=== PATIENT | male | born 1975 | race Caucasian/White ===

== ENCOUNTER 2021-10-23 09:18 | Outpatient (CLI) | payer BC, SELFPAY ==
--- NOTE | 2021-10-23 11:00 | NEURO_ITS ---
Impression: # Complains of numbness of 4th and 5th fingers. # Normal nerve conduction study with no Carpal Tunnel Syndrome or ulnar neuropathy. # Normal needle/EMG exam. # Clinical correlation recommended. Nerve Conduction Studies Anti Sensory Summary Table Stim Site NR Peak (ms) P-T Amp (?V) Site1 Site2 Delta-P (ms) Dist (cm) Himanshu (m/s) Left Median Anti Sensory (2-3nd Digit) Wrist 2.8 85.1 Wrist 2-3nd Digit 2.8 14.0 50 Wrist 2.8 79.2 Wrist 2-3nd Digit 2.8 14.0 50 Right Median Anti Sensory (2-3nd Digit) Wrist 2.7 75.6 Wrist 2-3nd Digit 2.7 14.0 52 Wrist 2.8 69.4 Wrist 2-3nd Digit 2.7 14.0 52 Left Radial Anti Sensory (Base 1st Digit) Wrist 2.2 23.5 Wrist Base 1st Digit 2.2 0.0 Right Radial Anti Sensory (Base 1st Digit) Wrist 2.3 21.2 Wrist Base 1st Digit 2.3 0.0 Left Ulnar Anti Sensory (5th Digit) Wrist 2.7 64.4 Wrist 5th Digit 2.7 14.0 52 Right Ulnar Anti Sensory (5th Digit) Wrist 2.4 58.0 Wrist 5th Digit 2.4 14.0 58 Motor Summary Table Stim Site NR Onset (ms) O-P Amp (mV) Site1 Site2 Delta-0 (ms) Dist (cm) Himanshu (m/s) Left Median Motor (Abd Poll Brev) Wrist 3.1 3.1 Elbow Wrist 5.1 29.0 57 Elbow 8.2 4.7 Right Median Motor (Abd Poll Brev) Wrist 3.1 3.0 Elbow Wrist 4.9 28.0 57 Elbow 8.0 3.0 Left Ulnar Motor (Abd Dig Minimi) Wrist 2.3 6.3 A Elbow Wrist 4.9 28.0 57 A Elbow 7.2 5.8 Right Ulnar Motor (Abd Dig Minimi) Wrist 2.4 6.3 A Elbow Wrist 5.1 29.0 57 A Elbow 7.5 5.8 F Wave Studies NR F-Lat (ms) L-R F-Lat (ms) Left Median (Mrkrs) (Abd Poll Brev) 28.01 0.41 Right Median (Mrkrs) (Abd Poll Brev) 27.60 0.41 Left Ulnar (Mrkrs) (Abd Dig Min) 27.81 0.02 Right Ulnar (Mrkrs) (Abd Dig Min) 27.84 0.02 EMG Side Muscle Nerve Root Ins Act Fibs Amp Dur Recrt Comment Right 1stDorInt Ulnar C8-T1 Nml Nml Nml Nml Nml Right Ext Indicis Radial (Post Int) C7-8 Nml Nml Nml Nml Nml Right Ext Digitorum Radial (Post Int) C7-8 Nml Nml Nml Nml Nml Right BrachioRad Radial C5-6 Nml Nml Nml Nml Nml Right PronatorTeres Median C6-7 Nml Nml Nml Nml Nml Right Abd Poll Brev Median C8-T1 Nml Nml Nml Nml Nml Left 1stDorInt Ulnar C8-T1 Nml Nml Nml Nml Nml Left Ext Indicis Radial (Post Int) C7-8 Nml Nml Nml Nml Nml Left Ext Digitorum Radial (Post Int) C7-8 Nml Nml Nml Nml Nml Left BrachioRad Radial C5-6 Nml Nml Nml Nml Nml Left PronatorTeres Median C6-7 Nml Nml Nml Nml Nml Left Abd Poll Brev Median C8-T1 Nml Nml Nml Nml Nml Right ABD Dig Min Ulnar C8-T1 Nml Nml Nml Nml Nml Right Abd Poll Long Radial (Post Int) C7-8 Nml Nml Nml Nml Nml Left ABD Dig Min Ulnar C8-T1 Nml Nml Nml Nml Nml Left Abd Poll Long Radial (Post Int) C7-8 Nml Nml Nml Nml Nml MTDD
== END 2021-10-23 09:19 | disposition home or self-care (01) ==
LOC: ANHNEURO 09:21
PROVIDERS: PCP Family Medicine; Visit Provider Family Medicine
DX: R20.0 Anesthesia of skin (principal); R20.2 Paresthesia of skin
CPT/HCPCS: 95886; 95911

== ENCOUNTER 2023-02-06 08:59 | Emergency (ER) | payer BC, SELFPAY ==
--- NOTE | ~2023-02-06 | CT_ITS ---
EXAMINATION: CT cervical spine wo con DATE: 02/06/2023 09:53 INDICATION: Head injury TECHNIQUE: Computed tomography (CT) of the cervical spine was performed without intravenous contrast. The dose-length product (DLP) was 372.68 mGy-cm. Automated exposure control and iterative reconstruc tion technique were employed. COMPARISON: None FINDINGS: On alignment is normal. There is no fracture. The odontoid process is intact. The vertebral body heights are maintained. Small degenerative osteophytes project from the anterior endplates of m ultiple vertebral bodies. There is multilevel mild facet and uncovertebral joint osteoarthritis. Ther e is a moderate amount of venous gas seen in the subclavian veins and scattered throughout smaller ve ins in the neck and at a few levels of the cervical spine, possibly related to IV insertion. IMPRESSION: 1. Mild cervical spondylosis without acute osseous abnormality. Reviewed, dictated and finalized at location A.
--- NOTE | ~2023-02-06 | XR_ITS ---
EXAMINATION: XR chest 1V INDICATION: Chest pain TECHNIQUE: Frontal view of the chest is obtained. COMPARISON: None available FINDINGS: The lungs are free of acute opacities. No pleural effusion or pneumothorax. The cardiomedia stinal silhouette is normal. IMPRESSION: 1. No acute cardiopulmonary abnormality. Reviewed, dictated and finalized at location A.
--- NOTE | ~2023-02-06 | XR_ITS ---
EXAMINATION: XR hip LT 2V w AP pelvis INDICATION: Left hip pain TECHNIQUE: AP view of the pelvis and two views of the left hip are obtained. COMPARISON: None available FINDINGS: Bone alignment is normal. There is no fracture. There is mild osteoarthritis of the hips. IMPRESSION: 1. No acute osseous abnormality. Reviewed, dictated and finalized at location A.
--- NOTE | ~2023-02-06 | CT_ITS ---
EXAMINATION: CT brain wo con INDICATION: Head injury COMPARISON: None TECHNIQUE: Standard unenhanced head CT. The dose-length product (DLP) was 605.33 mGy-cm. The mA was a djusted according to patient size. Iterative reconstruction technique was employed. FINDINGS: There is no intracranial hemorrhage, acute infarction, or abnormal mass lesion. The ventric les are normal. There is no abnormal mass effect or midline shift. The murillo-white matter differentiat ion is normal. The basal cisterns are patent. The orbits are normal. The paranasal sinuses, mastoids and calvarium are normal. IMPRESSION: 1. No acute intracranial abnormality. Reviewed, dictated and finalized at location A.
--- NOTE | ~2023-02-06 | XR_ITS ---
EXAMINATION: XR knee LT min 4V DATE: 02/06/2023 10:30 INDICATION: Left knee pain TECHNIQUE: Four views of the left knee were obtained. COMPARISON: None. FINDINGS: Alignment is normal. No fracture or osteochondral lesion. Joint spaces are normal with no e rosions. No joint effusion/synovitis. Soft tissues are unremarkable. IMPRESSION: 1. No acute osseous abnormality. Reviewed, dictated and finalized at location A.
--- NOTE | ~2023-02-06 | XR_ITS ---
EXAMINATION: XR elbow LT min 3V DATE: 02/06/2023 10:29 INDICATION: Left elbow pain, initial encounter TECHNIQUE: Anteroposterior, oblique, and lateral views of the left elbow were obtained. COMPARISON: None. FINDINGS: There is a comminuted fracture of the olecranon. The largest fracture fragment is proximall y migrated and overriding the posterior aspect of the distal humeral shaft. There is posterior soft t issue swelling of the elbow. No additional fracture is identified. IMPRESSION: 1. Comminuted fracture of the olecranon with proximal migration of the largest fracture fragment. Reviewed, dictated and finalized at location A.
--- NOTE | ~2023-02-06 | XR_ITS ---
EXAMINATION: XR hand RT min 3V INDICATION: Right hand pain, initial encounter TECHNIQUE: Three views of the right hand are obtained. COMPARISON: None available FINDINGS: There is an acute, traumatic, comminuted neck fracture of the fifth metacarpal. The distal fracture fragment demonstrates approximately 3 mm of lateral displacement. No additional fracture is identified. The joint spaces are normal. Soft tissue swelling is seen near the fracture. IMPRESSION: 1. Comminuted, minimally displaced fifth metacarpal neck fracture. Reviewed, dictated and finalized at location A.
--- NOTE | ~2023-02-06 | XR_ITS ---
EXAMINATION: XR shoulder LT min 2V INDICATION: Left shoulder pain TECHNIQUE: Four views of the left shoulder are submitted. COMPARISON: None FINDINGS: Normal alignment. No fracture. Glenohumeral and acromioclavicular joint spaces are normal. Soft tissues are unremarkable. IMPRESSION: 1. No acute osseous abnormality. Reviewed, dictated and finalized at location A.
[2023-02-06 09:10] VITALS: BP 136/89; PULSE 67; RESP 16; TEMP 37; O2SAT 100
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
[2023-02-06 09:29] LABS: Basophils Percent Auto 0.4 % (0.2-1.2); Eosinophils Absolute Auto 0.1 K/mm3 (0-0.3); Eosinophils Percent Auto 0.9 % (0-4.4); Hematocrit 43.7 % (42.0-52.0); Hemoglobin 15.4 g/dL (14.0-18.0); Immature Granulocyte Absolute 0.02 K/mm3 (0.00-0.031); Immature Granulocyte Percent A 0.4 % (0-0.5); Lymphocytes Absolute Auto 1.18 K/mm3 (0.9-3.2); Lymphocytes Percent Auto 21.5 % (18.3-44.2); Mean Corpuscular HGB Conc 35.2 g/dl (32-36); Mean Corpuscular Hemoglobin 31.4 pg (26-34); Mean Corpuscular Volume 89.2 fl (80-100); Mean Platelet Volume 9.7 fl (7.4-10.4); Monocytes Absolute Auto 0.4 K/mm3 (0.1-0.6); Monocytes Percent Auto 7.8 % (2.6-8.5); Neutrophils Absolute Auto 3.8 K/mm3 (1.3-6.7); Platelet Count Result 165 k/mm3 (150-375); Red Cell Distribution Width 11.9 % (11.5-14.5); White Blood Count 5.5 K/mm3 (4.5-10.0)
[2023-02-06] MEDS: MORPHINE SULFATE (*CRX) 4 MG/ML INJ IV PUSH (09:29)
[2023-02-06] MEDS: SODIUM CHLORIDE 0.9% IV 1,000 ML 999 ML IV CONT (09:29)
[2023-02-06] MEDS: TETANUS,DIPHTHERIA,AC PERTUSSIS ADULT (0.5 ML) BOOSTRIX IM (09:30)
[2023-02-06] MEDS: ONDANSETRON INJ 4 MG/2 ML VIAL IV PUSH (09:30)
[2023-02-06 09:39] LABS: Alanine Aminotransferase 23 U/L (6-50); Alkaline Phosphatase 44 U/L (38-126); Anion Gap 7 mmol/L (8-16); Aspartate Amino Transferase 30 U/L (17-59); Bilirubin,Total 0.9 mg/dL (0.2-1.3); Blood Urea Nitrogen 20 mg/dL (9-20); Calcium 8.8 mg/dL (8.4-10.2); Carbon Dioxide 27 mmol/L (22-30); Chloride 104 mmol/L (98-107); Estimated CRCL calculation 68 ml/min; Estimated Glomerular Filt Rate 59; Glucose 155 mg/dL (65-110); Potassium 3.9 mmol/L (3.4-5.0); Sodium 138 mmol/L (137-145)
[2023-02-06 11:37] VITALS: BP 166/107; PULSE 62; RESP 18; O2SAT 100
[2023-02-06] MEDS: oxyCODONE/ACETAMINOPHEN (*CRX) 5-325 MG TABLET 1 TABLET PO (11:40)
--- NOTE | 2023-02-06 12:26 | PC.NURSE ---
Patient declines EMS for transport to [facility], family requests transporting in private car.
[2023-02-06 12:49] VITALS: BP 166/108; PULSE 80; RESP 16; O2SAT 100
== END 2023-02-06 12:53 | disposition short-term general hospital (02) ==
PROVIDERS: Emergency Provider General Practice; PCP Family Medicine
DX: S52.022A Displaced fracture of olecranon process without intraarticular extension of left ulna, initial encounter for closed fracture (principal); S62.336A Displaced fracture of neck of fifth metacarpal bone, right hand, initial encounter for closed fracture; S09.90XA Unspecified injury of head, initial encounter; S40.212A Abrasion of left shoulder, initial encounter; S50.312A Abrasion of left elbow, initial encounter; S70.212A Abrasion, left hip, initial encounter; S80.212A Abrasion, left knee, initial encounter; Z23 Encounter for immunization; M47.812 Spondylosis without myelopathy or radiculopathy, cervical region; V17.0XXA Pedal cycle driver injured in collision with fixed or stationary object in nontraffic accident, initial encounter; Y93.55 Activity, bike riding
CPT/HCPCS: 29105; 29125; 36415; 70450; 71045; 72125; 73030; 73080; 73130; 73502; 73564; 80053; 85025; 90471; 90715; 96361; 96374; 96375; 99284; A4565; A9270; J2270; J2405; J7030

== ENCOUNTER 2023-05-24 00:30 | Day surgery (SDC) | payer BC, SELFPAY ==
[2023-05-13 11:25] VITALS: BMI 23.1
[2023-05-24 06:37] VITALS: BP 119/99; PULSE 68; RESP 16; TEMP 36.1; O2SAT 100
[2023-05-24] MEDS: LACTATED RINGERS 1,000 ML 150 ML IV CONT (06:47)
--- NOTE | 2023-05-24 07:19 | PM.HPGS ---
History of Present Illness History of Present Illness Consent: Risks, benefits, and alternatives have been discussed and questions answered. Patient agrees to proceed with procedure. Chief complaint: neoplasm screening Narrative: Alejo Patel is a 48 year old male Presents for screening colonoscopy. Patient's current weight appetite and bowel movements are normal. He denies abdominal pain. Patient has had no bleeding. Family history noncontributory. Review of Systems Review of Systems: Review of systems noncontributory. [facility] Past Medical History Medical History No pertinent family history Seasonal allergies Surgical History Surgical History History of appendectomy (~2007) History of wisdom tooth extraction Social History Social History Smoking status: Never smoker Alcohol intake: current Drinks per week: 6 Substance use: current Substance use type: marijuana Other substance usage details: gummies Lack of Transportation: No Lack of Food: Never True Current Housing: I Have Housing Concerned About Future Housing: No Difficulty Paying Gas/Electric Bills: No Difficulty Paying for Meds: No Currently Unemployed: No Education: Master's Degree or Higher Difficulty w/ Childcare or Family Care: No Living arrangements: with family Occupation/Education: occupation Meds Home Medications and Allergies Home Medications Medication Instructions Recorded Confirmed Type cetirizine 10 mg tablet (Zyrtec) 10 mg PO DAILY PRN allergies 01/12/23 05/24/23 History cholecalciferol (vitamin D3) 25 25 mcg PO DAILY 01/12/23 05/24/23 History mcg (1,000 unit) capsule amlodipine 5 mg tablet 5 mg PO DAILY #90 tabs 03/24/23 05/24/23 Rx Allergies Allergy/AdvReac Type Severity Reaction Status Date / Time cephalexin [From Keflex] Allergy Rash Verified 05/24/23 06:34 Vital Signs Vital Signs - 24 hr 05/24/23 06:37 Temperature 97.0 F L Pulse Rate 68 Respiratory Rate 16 Blood Pressure 119/99 H Pulse Oximetry 100 Oxygen Delivery Room Air Exam Narrative: Physical exam reveals patient to be alert. Vital signs stable. HEENT exam is unremarkable. Patient is anicteric. Lungs are clear to auscultation and percussion. Heart is without murmur or extra sounds. Abdomen bowel sounds are present soft nontender with no organomegaly. Digital external rectal exam is normal. Assessment and Plan Assessment and plan (1) Encounter for screening colonoscopy: Code(s): Z12.11 - Encounter for screening for malignant neoplasm of colon Status: Acute Assessment and Plan: Patient presents today for screening colonoscopy. He appears to be at average risk for colon polyps. Further recommendations may be given after endoscopy.
--- NOTE | 2023-05-24 07:22 | WPDANESEPPF ---
Anes - Initial Pre Proc Eval Procedure: Operation Date: 05/24/23 07:30 Proposed Procedures p Screening Colonoscopy - Jesus Pagan MD Date/Time: 05/24/23 07:22 Surgeon: Jesus Pagan MD Pre Op Diagnosis: neoplasm screening Patient Data Age: 48 Gender: M Height: 1.83 m Weight: 78.5 kg Last Vital Signs Temp 97.0 F L 05/24/23 06:37 Pulse 68 05/24/23 06:37 Resp 16 05/24/23 06:37 BP 119/99 H 05/24/23 06:37 Pulse Ox 100 05/24/23 06:37 O2 Del Method Room Air 05/24/23 06:37 Allergies Allergy/AdvReac Type Severity Reaction Status Date / Time cephalexin [From Keflex] Allergy Rash Verified 05/24/23 06:34 Home Medications Medication Instructions Recorded Confirmed Type cetirizine 10 mg tablet (Zyrtec) 10 mg PO DAILY PRN allergies 01/12/23 05/24/23 History cholecalciferol (vitamin D3) 25 25 mcg PO DAILY 01/12/23 05/24/23 History mcg (1,000 unit) capsule amlodipine 5 mg tablet 5 mg PO DAILY #90 tabs 03/24/23 05/24/23 Rx Patient hx anesthesia problems: none Family hx anesthesia problems: none Results Review: All pre-operative results and documents have been reviewed as part of the pre-operative evaluation. [facility] Past Medical History Medical History No pertinent family history Seasonal allergies Surgical History Surgical History History of appendectomy (~2007) History of wisdom tooth extraction Social History Social History Smoking status: Never smoker Alcohol intake: current Drinks per week: 6 Substance use: current Substance use type: marijuana Other substance usage details: gummies Lack of Transportation: No Lack of Food: Never True Current Housing: I Have Housing Concerned About Future Housing: No Difficulty Paying Gas/Electric Bills: No Difficulty Paying for Meds: No Currently Unemployed: No Education: Master's Degree or Higher Difficulty w/ Childcare or Family Care: No Living arrangements: with family Occupation/Education: occupation Anes - Eval Final PreProcedure Day of Procedure 05/24/23 07:22 Patient weight: normal Heart: regular rate and rhythm Lungs: clear to auscultation Airway: Mallampati scale class II Neurological: alert and oriented Last oral intake: >/= 8 hours Emergent: no Anesthetic plan: proceed Anesthesia type and monitoring: general GIVS and standard monitoring Results Review: All pre-operative results and documents have been reviewed as part of the pre-operative evaluation. Informed Consent: The patient's anesthetic plan and its attendant risks and benefits were discussed with the patient/family/POA. Questions were solicited and answers provided to the satisfaction of the patient/family/POA.
[2023-05-24 07:49] VITALS: BP 131/83; PULSE 75; RESP 20; O2SAT 99
[2023-05-24 07:59] VITALS: BP 138/96; PULSE 75; RESP 22; O2SAT 99
[2023-05-24 08:09] VITALS: BP 150/105; PULSE 60; RESP 21; O2SAT 100
== END 2023-05-24 08:17 | disposition home or self-care (01) ==
PROVIDERS: PCP Family Medicine; Visit Provider Internal Medicine Gastroenterology
PROC: 0DJD8ZZ Inspection of Lower Intestinal Tract, Via Natural or Artificial Opening Endoscopic (ICD-10-PCS; CPT 45378; principal; 2023-05-24 07:30)
DX: Z12.11 Encounter for screening for malignant neoplasm of colon (principal); K64.8 Other hemorrhoids; F12.90 Cannabis use, unspecified, uncomplicated; J30.2 Other seasonal allergic rhinitis
CPT/HCPCS: 45378; J2704; J7120

== ENCOUNTER 2023-06-17 09:48 | Outpatient (CLI) | payer BC, SELFPAY ==
--- NOTE | ~2023-06-17 | CT_ITS ---
Non-contrast CT scan of the Abdomen and Pelvis Clinical indication: Left lower quadrant pain Technique: 2.5 mm axial scans were obtained through the abdomen and pelvis without intravenous or or al contrast. Dose reduction technique was used on this scan by utilizing automated exposure control a nd iterative reconstruction technique. The dose-length product (DLP) was 525.38 mGy-cm. Findings: Images through the lung bases reveal no abnormalities. There is no evidence of renal or ureteral calculi. The kidneys and the ureters are nondilated. The liver, spleen, pancreas, gallbladder, and adrenals appear normal. There is no aortic aneurysm. There is no evidence of bowel obstruction. Images through the pelvis were performed. There is no evidence of ascites or lymphadenopathy. Urinary bladder unremarkable. No pelvic mass evident. Impression: No significant abnormality seen. Reviewed, dictated and finalized at [facility]. ERN CARRIER Impression: No significant abnormality seen.
== END 2023-06-17 09:49 ==
LOC: GOSHIMG 09:49
PROVIDERS: PCP Family Medicine; Visit Provider Family Medicine
DX: R10.32 Left lower quadrant pain (principal)
CPT/HCPCS: 74176